=== PATIENT | female | born 1980 | race Caucasian/White ===

== ENCOUNTER → 2017-03-21 | Outpatient (CLI) | payer BC ==
[2014-11-16 20:55] VITALS: BP 126/70
--- NOTE | 2017-03-21 08:57 | RAD ---
Right upper quadrant pain, 03/21/2017: History: Pain The gallbladder is within normal limits in size. There is no sonographic evidence of cholelithiasis. The gallbladder richardson are not thickened. No bile duct dilatation is evident. There is no evidence of a hepatic mass. The visualized portions of the pancreas and right kidney are unremarkable. IMPRESSION: No significant abnormality is detected.
== END | disposition home or self-care (01) ==
LOC: US 07:54
PROVIDERS: ATTEND Physician Assistant Medical
DX: R10.11 Right upper quadrant pain (principal)
CPT/HCPCS: 76705

== ENCOUNTER → 2018-11-11 | Outpatient (CLI) | payer BC ==
[2014-11-16 20:55] VITALS: BP 126/70
--- NOTE | 2018-11-11 14:59 | RAD ---
EXAM: LUMBAR SPINE MIN 4V. HISTORY: Low back pain. COMPARISON: None. FINDINGS: There is mild rotation on the lateral projection. No fractures are identified. Alignment appears maintained. Degenerative disc disease is mild at L5-S1. IMPRESSION: 1. Mild degenerative disc disease at L5-S1. Electronically signed by: Haylie Mendes MD (11/11/2018 2:56 PM) [facility]
== END | disposition home or self-care (01) ==
LOC: RAD 09:15
PROVIDERS: ATTEND Physician Assistant Medical
DX: M51.37 Other intervertebral disc degeneration, lumbosacral region (principal)
CPT/HCPCS: 72110

== ENCOUNTER → 2020-06-13 | Outpatient (CLI) | payer BC ==
[2014-11-16 20:55] VITALS: BP 126/70
[~2020-06-13] MED LIST: IOHEXOL 240 MG/ML 50ML VIAL. ONE; IOHEXOL 300 MG/ML 75 ML VIAL. IV ONE
--- NOTE | 2020-06-13 11:18 | RAD ---
EXAM: Abdomen and pelvis CT with intravenous contrast. HISTORY: Pain. TECHNIQUE: Computed tomographic images of the abdomen and pelvis were obtained following the administ ration of intravenous contrast. Multiplanar reformatting was performed. *One or more of the following individualized dose reduction techniques were utilized for this examina tion: 1. Automated exposure control. 2. Adjustment of the mA and/or kV according to patient size. 3. Use of iterative reconstruction technique. COMPARISON: None. FINDINGS: Evaluation of the lower thorax is unremarkable. No hepatic lesion is seen. The gallbladder, pancreas, spleen, adrenal glands and kidneys are unremarkable. There is no appendicitis. There is no bowel obstruction. There is moderate colonic stool. The urinary bladder is unremarkable. There are m ultiple bilateral ovarian follicles and dominant follicular cysts, largest of which measures 2.3 cm o n the right and 2.0 cm on the left. The cervix is prominent in size but remains within physiologic li mits. There is trace is moderate pelvic free fluid. The aorta is normal in caliber. There is no lymph adenopathy. There is no suspicious osseous lesion. There are degenerative changes involving the thora cic and lumbar spine. IMPRESSION: 1. Dominant physiologic bilateral ovarian follicular cysts measuring 2.3 cm of the right and 2.0 cm o n the left. 2. Moderate colonic stool. 3. No acute abdominal finding. Electronically signed by: Janette Archer MD (06/13/2020 11:16 AM) [id number]
== END ==
LOC: CT 09:00
PROVIDERS: ATTEND Internal Medicine Gastroenterology
DX: N83.01 Follicular cyst of right ovary (principal); N83.02 Follicular cyst of left ovary; M47.815 Spondylosis without myelopathy or radiculopathy, thoracolumbar region; K90.0 Celiac disease; R61 Generalized hyperhidrosis
CPT/HCPCS: 74177; Q9967

== ENCOUNTER → 2020-09-08 | Outpatient (CLI) | payer OTHER ==
[2014-11-16 20:55] VITALS: BP 126/70
--- NOTE | 2020-09-08 18:38 | RAD ---
EXAM: LEFT ANKLE 3 VIEWS. HISTORY: Left ankle pain, mass posteriorly COMPARISON: None. FINDINGS: Three views of the left ankle are obtained. No fractures are identified. Changes of a chronic avulsion injury are noted laterally. Alignment is n ormal. Joint spaces are maintained. There is focal thickening of the Achilles tendon 5.5 cm proximal to its origin. IMPRESSION: 1. Focal thickening of the Achilles tendon that may reflect a partial tear, severe tendinopathy or a xanthoma. Ultrasound or MRI could further evaluate. Electronically signed by: Haylie Mendes MD (09/08/2020 6:36 PM) [facility]
== END ==
LOC: RAD 15:57
PROVIDERS: ATTEND Orthopaedic Surgery
DX: R22.42 Localized swelling, mass and lump, left lower limb (principal)
CPT/HCPCS: 73610